=== PATIENT | female | born 1950 | race Caucasian/White ===

== ENCOUNTER 2019-10-02 15:45 | Emergency (ER) | payer MEDICARE, SELFPAY ==
--- NOTE | ~2019-10-02 | XR_ITS ---
EXAMINATION: XR humerus LT INDICATION: Left arm pain TECHNIQUE: Two views of the left humerus are obtained. COMPARISON: 05/17/2015 FINDINGS: There is no fracture, dislocation, or subluxation of the humerus. The glenohumeral joint ap pears unremarkable. There are 10 mm of widening of the acromioclavicular joint. The soft tissues are unremarkable. IMPRESSION: 1. No acute osseous abnormality. 2. Acromioclavicular joint separation. Reviewed, dictated and finalized at location A.
--- NOTE | ~2019-10-02 | XR_ITS ---
EXAMINATION: XR clavicle LT INDICATION: Left shoulder pain TECHNIQUE: Two views of the left clavicle are obtained. COMPARISON: 05/17/2015 FINDINGS: There are 2 mm of separation at the acromioclavicular joint. No fractures identified. Mild glenohumeral osteoarthritis is noted. IMPRESSION: 1. Acromioclavicular joint separation. Reviewed, dictated and finalized at location A.
[2019-10-02 15:48] VITALS: BP 147/81; PULSE 113; RESP 16; TEMP 37.6; O2SAT 95
--- NOTE | 2019-10-02 17:17 | ED.FALL ---
HPI - Fall General Chief Complaint: Fall Stated Complaint: left shoulder issue Time Seen by Provider: 10/02/19 17:02 Source: patient Mode of arrival: ambulatory Limitations: no limitations History of Present Illness HPI Narrative: 69-year-old female History of hypothyroid and hypertension Takes no blood thinners only a baby aspirin Stumbled today at her house and banged into a wall with her left upper arm and shoulder as she fell Did not hit her head did not lose consciousness complains of no headache and no neck pain She has a bruise on the upper part of her arm and some soreness in the front of her shoulder MD complaint: fall Onset (ago): hour(s) Fall from: standing Place fall occurred: home Loss of consciousness: none Symptoms prior to fall: none Context: tripped/slipped Location of injury - extremities: Left: shoulder Severity: moderate Related Data Home Medications Medication Instructions Recorded Confirmed fesoterodine [Toviaz] mg PO 10/02/19 [id number] INHALATION 10/02/19 [Trelegy Ellipta] hydrocodone-acetaminophen 10/02/19 levothyroxine 10/02/19 lisinopril 10/02/19 losartan 10/02/19 nifedipine PO 10/02/19 omeprazole 10/02/19 Allergies Allergy/AdvReac Type Severity Reaction Status Date / Time No Known Allergies Allergy Mild Verified 10/02/19 16:00 Review of Systems Review of Systems: All systems reviewed & are unremarkable except as noted in HPI and below Constitutional: Constitutional: Denies fatigue and Denies weakness Cardiovascular: Cardiovascular: Denies chest pain Musculoskeletal: Musculoskeletal: Reports no additional musculoskeletal complaints and Reports as per HPI Neurologic: Denies dizziness, Denies syncope and Denies weakness Hematologic/Lymphatic: Hematologic/Lymphatic: Denies easy bleeding and Denies easy bruising [facility] Social History Social History Gender identity (if verbalized by the patient): Female Exam Const: General: no acute distress and alert Orientation/consciousness: patient oriented x3 HENMT: Head: normal to inspection Other: NC/AT Eyes: Conjunctivae: conjunctivae normal EOM: EOMs intact bilaterally Neck: Other: Nontender, pain-free range of motion, clinically clear Chest: Chest palpation & inspection: normal inspection of the chest and no tenderness Resp: Effort & Inspection: normal respiratory effort Neuro: General: patient oriented x3 and moves all extremities Speech: normal speech Extrem: Other: She has a 5 cm bruise over the lateral part of her upper arm on the left side but very little tenderness in that area There is tenderness over the left AC joint Course Vital Signs Vital signs: Vital Signs Temperature 37.6 C H 10/02/19 15:48 Pulse Rate 113 H 10/02/19 15:48 Respiratory Rate 16 10/02/19 15:48 Blood Pressure 147/81 H 10/02/19 15:48 Pulse Oximetry 95 10/02/19 15:48 Temperature 37.6 C H 10/02/19 15:48 Pulse Rate 113 H 10/02/19 15:48 Respiratory Rate 16 10/02/19 15:48 Blood Pressure 147/81 H 10/02/19 15:48 Pulse Oximetry 95 10/02/19 15:48 MDM - Fall Imaging Data Radiologist's impression: AC separation No fracture Discharge Plan Discharge Clinical Impression: Separation of left acromioclavicular joint Patient Disposition: Home, Self-Care Condition: Stable Instructions: Antibiotic Form, How to Use a Sling (ED), Acromioclavicular Separation (ED) Prescriptions: No Action nifedipine 90 mg tablet extended release PO RF: 0 hydrocodone-acetaminophen 5-325 mg tablet RF: 0 lisinopril 20 mg tablet RF: 0 losartan 25 mg tablet RF: 0 omeprazole 20 mg capsule,delayed release(DR/EC) RF: 0 levothyroxine 112 mcg tablet RF: 0 Toviaz 8 mg tablet extended release 24 hr PO RF: 0 Trelegy Ellipta 100-62.5-25 mcg blister with device
--- NOTE | 2019-10-02 17:51 | PC.NURSE ---
Patient states my hand is going numb, can I talk to the doctor. Dr. Herrera notified.
== END 2019-10-02 18:03 | disposition home or self-care (01) ==
PROVIDERS: Emergency Provider Emergency Medicine; PCP Nurse Practitioner Family
DX: S43.102A Unspecified dislocation of left acromioclavicular joint, initial encounter (principal); E03.9 Hypothyroidism, unspecified; I10 Essential (primary) hypertension; W01.198A Fall on same level from slipping, tripping and stumbling with subsequent striking against other object, initial encounter
CPT/HCPCS: 73000; 73060; 99283; A4565

== ENCOUNTER 2023-06-16 11:24 | Outpatient (CLI) | payer MEDICARE, SELFPAY ==
--- NOTE | ~2023-06-16 | US_ITS ---
EXAMINATION: US venous doppler LE RT DATE: 06/16/2023 11:59 INDICATION: Right lower limb pain and swelling. Chronic venous embolism and thrombosis. TECHNIQUE: Grayscale ultrasound images without and with compression and Doppler ultrasound images of the right lower extremity veins were obtained. COMPARISON: None. FINDINGS: The visualized portions of right common femoral vein, profunda (deep) femoral vein, femoral vein, pop liteal vein, peroneal veins, posterior tibial veins, and greater saphenous vein outflow are patent. IMPRESSION: 1. No deep venous thrombosis. Reviewed, dictated and finalized at location A.
== END 2023-06-16 11:25 | disposition home or self-care (01) ==
PROVIDERS: PCP Nurse Practitioner Family; Visit Provider Internal Medicine Hematology & Oncology
DX: I82.5Z1 Chronic embolism and thrombosis of unspecified deep veins of right distal lower extremity (principal)
CPT/HCPCS: 93971

== ENCOUNTER 2023-07-07 13:53 | Outpatient (CLI) | payer MEDICARE, SELFPAY ==
[2023-07-08 11:33] LABS: Homocysteine 12.8 umol/L (<10.4)
[2023-07-09 19:29] LABS: Lupus dRVVT Screen 38 sec (< OR = 45); PTT-LA Screen 27 sec (< OR = 40)
[2023-07-11 06:18] LABS: Antithrombin III Activity 123 % normal (80-135)
[2023-07-14 14:09] LABS: Factor V (Leiden) Mutation NEGATIVE
== END 2023-07-07 13:54 | disposition home or self-care (01) ==
LOC: ANHLAB 13:54
PROVIDERS: PCP Nurse Practitioner Family; Visit Provider Internal Medicine Hematology & Oncology
DX: I82.5Z1 Chronic embolism and thrombosis of unspecified deep veins of right distal lower extremity (principal)
CPT/HCPCS: 36415; 81240; 81241; 83090; 85300; 85303; 85306; 85613; 85730; 86146

== ENCOUNTER 2023-11-19 11:18 | Outpatient (CLI) | payer MEDICARE, SELFPAY ==
[2023-11-19 11:31] LABS: Hemoglobin 14.1 g/dL (12.0-15.0); Mean Corpuscular HGB Conc 31.3 g/dl (32-36); Mean Corpuscular Hemoglobin 30.3 pg (26-34); Mean Corpuscular Volume 96.6 fl (80-100); Mean Platelet Volume 9.6 fl (7.4-10.4); Platelet Count Result 287 k/mm3 (150-375); Red Blood Count 4.66 M/mm3 (4.2-5.4); White Blood Count 9.7 K/mm3 (4.5-10.0)
[2023-11-19 13:51] LABS: Vitamin B12 > 1000.0 pg/mL (239-931)
[2023-11-19 14:21] LABS: Folic Acid > 20.0 ng/mL (2.76->20)
[2023-11-21 14:24] LABS: Homocysteine 7.8 umol/L (<10.4)
== END 2023-11-19 11:19 | disposition home or self-care (01) ==
LOC: ANHLAB 11:19
PROVIDERS: PCP Nurse Practitioner Family; Visit Provider Internal Medicine Hematology & Oncology
DX: I82.5Z1 Chronic embolism and thrombosis of unspecified deep veins of right distal lower extremity (principal)
CPT/HCPCS: 36415; 82607; 82746; 83090; 85027

== ENCOUNTER 2024-12-07 07:46 | Emergency (ER) | payer MEDICARE, SELFPAY ==
[2024-12-07] VITALS (7 sets, daily range): BP systolic 172–203; BP diastolic 99–109; PULSE 93–111; RESP 16–20; TEMP 36.2; O2SAT 95–98
--- OUTSIDE RECORDS SUMMARY | 2024-12-07 07:50 | XMS_ITS | Clinical Summary ---
Author Organization [facility] Carol Ramirez Address [address] [place] [address] Care Team Providers Care Bill Poster Installer Name Role Phone Unavailable Primary Care Provider Unavailabl e Allergies No known active allergies Medications albuterol sulfate HFA 90 mcg/actuation aerosol inhaler Take 2 Puffs by inhalation every 4 hours as needed. 4 Active apixaban (Eliquis) 5 mg tablet Take 5 mg by mouth 2 times daily. 4 Active cholecalciferol, Vitamin D3, 125 mcg (5,000 unit) Capsule Take 125 mcg by mouth daily. 4 Active dapagliflozin propanediol (Farxiga) 10 mg Tablet Take 10 mg by mouth daily. 4 Active fluticasone-umec lidinium-vilante rol (Trelegy Ellipta) 200-62.5-25 mcg Disk with Device Take 1 Puff by inhalation daily. 4 Active HYDROcodone-acet aminophen (NORCO) 5-325 mg tablet Take 1-2 Tablets by mouth every 6 hours as needed. 4 Active levothyroxine 112 mcg tablet Take 112 mcg by mouth. 4 Active lisinopriL (PRINIVIL) 20 mg tablet Take 20 mg by mouth daily. 3 Active NIFEdipine (ADALAT CC) 90 mg Extended Release tablet TAKE 1 TABLET(90 MG) BY MOUTH DAILY 4 Active omeprazole (PriLOSEC) 20 mg Capsule, Delayed Release(E.C.) Take 20 mg by mouth daily. 4 Active furosemide (LASIX) 20 mg tablet TAKE 1 TABLET(20 MG) BY MOUTH DAILY NEEDED FOR SWELLING 3 Active fesoterodine SR 24 hour (TOVIAZ) 8 mg tablet TAKE 1 TABLET(8 MG) BY MOUTH DAILY 3 Active Active Problems No known active problems Encounters Date Type Department Care Team Description 11/30/2024 External Device Data STL ABSTRACTION Provider, Abstract 11/23/2024 External Device Data STL ABSTRACTION Provider, Abstract 10/13/2024 2:15 PM CDT Office Visit [facility] H[facility]ology - [address] [place] [id number] Ashvin Weber MD Chronic venous embolism and thrombosis of deep vessels of distal end of right lower extremity (CMS/HCC) (Primary Dx) 09/22/2024 External Device Data STL ABSTRACTION Provider, Abstract 09/21/2024 External Device Data STL ABSTRACTION Provider, Abstract from Last 3 Months Family History Medical History Relation Name Comments Diabetes Mother Heart Disease Mother Lung Cancer Sister 3 Relation Name Status Comments Daughter Alive Father Mother Sister 1 Alive Sister 2 Alive Sister 3 Sister 4 Alive Son 1 Alive Son 2 Alive Social History Tobacco Use Types Packs/Day Years Used Date Smoking Tobacco: Former Cigarettes Q uit: 1965 Smokeless Tobacco: Never Tobacco Cessation:Counseling Given: Not Answered Alcohol Use Standard Drinks/Week Comments Yes 0 (1 standard drink = 0.6 oz pur e alcohol) rarely Comments Unknown Sex and Gender Information Value Date Recorded Sex Assigned at Not on file Legal Sex Female 2:13 PM CDT Gender Identity Not on file Sexual Orientation Not on file Last Filed Vital Signs Vital Sign Reading Time Taken Comments Blood Pressure 130/78 10/13/2024 2:21 PM CDT Pulse 91 10/13/2024 2:21 PM CDT Temperature 36.7 C (98 F) 10/13/2024 2:21 PM CDT Respiratory Rate 16 10/13/2024 2:21 PM CDT Oxygen Saturation 91% 10/13/2024 2:21 PM CDT Inhaled Oxygen Concentration - - Weight 84.2 kg (185 lb 9.6 oz) 10/13/2024 2:21 P M CDT Height 157.5 cm (5' 2) 06/16/2023 10:24 AM CDT Body Mass Index 33.95 06/16/2023 10:24 AM CDT Plan of Treatment Upcoming Encounters Date Type Department Care Team (Late st Contact Info) Description 07/13/2025 1:00 PM CDT Office Visit [facility] H[facility]ology - [place] [address] [place] [address] Ashvin Weber MD [address] [place] [address] Health Maintenance Due Date Last Done Comments ZOSTER VACCINE (1 of 2) 1998 OSTEOPOROSIS SCREENING 2013 RSV VACCINE (60+ or ) (1 - 1-dose 75+ series) 2023 INFLUENZA VACCINE (#1) 2024 , 12/30/2022, 01/27/2018, Additional history exists COVID-19 Vaccine (2 - 2023-2 5 season) 2024 01/22/2024 DTAP/TDAP/TD VACCINES (2 - T d or Tdap) 01/28/2028 01/27/2018 COLORECTAL SCREENING Discontinued 02/15/2019 Colorectal Cancer Screening Discontinued PNEUMOCOCCAL VACCINE 50+ YEARS Completed 11/29/2021 , 10/14/2017 FIT-DNA Q 3 years Discontinued FIT/FOBT Q 1 year Discontinued Flex Sig/CT Colonography Q 5 years Discontinued Procedures Procedure Name Priority Date/Time Associated Diagnosis Comments CBC WITH DIFFERENTIAL Routine 09/27/2024 2:29 PM CDT VITAMIN B12 AND FOLATE Routine 09/27/2024 2:29 PM CDT Chronic venous embolism and thrombosis of deep vessels of distal end of right lower extremity (CMS/HCC) HOMOCYSTEINE Routine 09/27/2024 2:29 PM CDT Chronic venous embolism and thrombosis of deep vessels of distal end of right lower extremity (CMS/HCC) from Last 3 Months Results * VITAMIN B12 AND FOLATE (09/27/2024 2:29 PM CDT) VITAMIN B12 774 200 - 1100 pg/mL [facility] FOLATE, SERUM 23.3 ng/mL [facility] Comment: Reference Range Low: <3.4 Borderline: 3.4-5.4 Normal: >5.4 Test Performed at: [facility] [address] [place] [address] Dank Reed MD Blood 09/27/2024 2:29 PM CDT 09/27/2024 2:31 PM CDT us Ashvin Weber MD CHEMISTRY ORDERABLES Final Resu lt [facility] [phone] [facility] [address] [place] [address] * (ABNORMAL) CBC WITH DIFFERENTIAL (09/27/2024 2:29 PM CDT) WBC 7.6 3.8 - 10.8 Thousand/u L [facility] RBC 4.72 3.80 - 5.10 Million/uL [facility] HEMOGLOBIN 14.5 11.7 - 15.5 g/dL [facility] HEMATOCRIT 46.3(H) 35.0 - 45.0 % [facility] MCV 98.1 80.0 - 100.0 fL [facility] MCH 30.7 27.0 - 33.0 pg [facility] MCHC 31.3(L) 32.0 - 36.0 g/dL [facility] Comment: For adults, a slight decrease in the calculated MCHC value (in the range of 30 to 32 g/dL) is most likely not clinically significant; however, it should be interpreted with caution in correlation with other red cell parameters and the patient's clinical condition. RDW 13.1 11.0 - 15.0 % [facility] PLATELETS 282 140 - 400 Thousand/u L [facility] MPV 10.9 7.5 - 12.5 fL [facility] NEUTROPHIL ABSOLUTE 3,952 1,500 - 7,800 cells/uL [facility] LYMPHOCYTE ABSOLUTE 2,827 850 - 3,900 cells/uL [facility] MONOCYTE ABSOLUTE 547 200 - 950 cells/uL [facility] EOSINOPHIL ABSOLUTE 213 15 - 500 cells/uL [facility] BASOPHILS ABSOLUTE 61 0 - 200 cells/uL [facility] NEUTROPHIL 52 % [facility] LYMPHOCYTES 37.2 % [facility] MONOCYTE 7.2 % [facility] EOSINOPHILS 2.8 % [facility] BASOPHILS 0.8 % [facility] Comment: Test Performed at: [facility] [address] [place] [address] Dank Reed MD 09/27/2024 2:29 PM CDT 09/27/2024 2:31 PM CDT Ashvin Weber MD HEMATOLOGY ORDERABLES Final Res ult [facility] [phone] [facility] [address] * HOMOCYSTEINE (09/27/2024 2:29 PM CDT) HOMOCYSTEINE CARDIOVASCULAR 11.3 < or = 13.4 umol/L [facility] Comment: Homocysteine is increased by functional deficiency of folate or vitamin B12. Testing for methylmalonic acid differentiates between these deficiencies. Other causes of increased homocysteine include renal failure, folate antagonists such as methotrexate and phenytoin, and exposure to nitrous oxide. Evert Brown et al., Shelia Picture [employer] Med. 1999;131(5):331-9. Test Performed at: [facility] [address] [facility] [address] Dank Reed MD Blood 09/27/2024 2:29 PM CDT 09/27/2024 2:31 PM CDT Ashvin Weber MD CHEMISTRY ORDERABLES Final Resu lt [facility] [phone] [facility] [address] [place] [id number] from Last 3 Months Insurance [facility] Address: [address] [address]
--- NOTE | 2024-12-07 07:53 | ED.GENADULT ---
HPI - General Adult General Chief complaint: Unspecified Stated complaint: locked jaw Time Seen by Provider: 12/07/24 07:48 History of Present Illness HPI narrative: 74-year-old female presents to the emergency department for evaluation for suspected jaw dislocation. Patient reports she yawned this morning and her jaw has been able to close since then. Patient denies any difficulty breathing or swallowing. Patient denies any swelling of her tongue. Related Data Home Medications ?Medication ?Instructions ?Recorded ?Confirmed ?Last Taken ?Type fesoterodine 8 mg tablet,extended 8 mg PO DAILY 10/02/19 12/07/24 12/06/24 History release 24 hr (Toviaz) fluticasone fur. 100 mcg-umeclid 1 inh inhalation Q24H 10/02/19 12/07/24 12/06/24 History 62.5 mcg-vilant 25 mcg inhalat.powder (Trelegy Ellipta) hydrocodone 5 mg-acetaminophen 325 1 tablet PO 10/02/19 Unknown History mg tablet levothyroxine 112 mcg tablet 112 mcg PO DAILY 10/02/19 12/07/24 12/06/24 History lisinopril 20 mg tablet 20 mg PO DAILY 10/02/19 12/07/24 12/06/24 History losartan 25 mg tablet 25 mg PO DAILY 10/02/19 12/07/24 12/06/24 History nifedipine 90 mg tablet,extended 90 mg PO DAILY 10/02/19 12/07/24 12/06/24 History release omeprazole 20 mg capsule,delayed 20 mg PO DAILY 10/02/19 12/07/24 12/06/24 History release Allergies Allergy/AdvReac Type Severity Reaction Status Date / Time No Known Allergies Allergy Mild Verified 12/07/24 08:00 Review of Systems Review of Systems: All systems reviewed & are unremarkable except as noted in HPI and below PMFSH Social History Social History Gender identity (if verbalized by the patient): Female Exam Narrative: APPEARANCE: Well appearing, no pain, no distress, well-nourished. HEAD: normocephalic, atraumatic. EYES: PERRLA/EOMI, conjunctivae clear. NOSE: Normal no drainage EARS:TMS clear with good light reflex. THROAT: Pharynx clear, no exudate. NECK: Supple. No adenopathy, no masses. Jaw: Bilateral mandible dislocation RESPIRATORY: Airway patent, respirations nonlabored. Clear to auscultation bilaterally, no rales, rhonchi, wheezing. CARDIOVASCULAR: Regular rate and rhythm without murmurs rubs or gallops. ABDOMINAL: Soft, nontender, nondistended, normal bowel sounds MUSCULOSKELETAL: Moves all extremities. Strength/ROM intact, No edema, No calf tenderness. NEURO: Alert. Cranial nerves II through XII intact. Good gait. Good coordination SKIN: Warm, dry. Normal Color Course Vital Signs Vital signs: Vital Signs Temperature 97.1 F L 12/07/24 07:57 Pulse Rate 106 H 12/07/24 07:57 Respiratory Rate 20 12/07/24 07:57 Blood Pressure 203/104 H 12/07/24 07:57 Pulse Oximetry 97 12/07/24 07:57 Oxygen Delivery Room Air 12/07/24 07:57 Temperature 97.1 F L 12/07/24 07:57 Pulse Rate 111 H 12/07/24 09:19 Respiratory Rate 18 12/07/24 09:19 Blood Pressure 173/109 H 12/07/24 09:19 Pulse Oximetry 95 12/07/24 09:19 Oxygen Delivery Room Air 12/07/24 08:59 Oxygen Flow Rate 2 12/07/24 08:32 Procedures Orthopedic Joint Reduction Joint #1: Orthopedic Joint Reduction Time: 08:08 Time Out Performed: Yes Joint Reduction Location: other (jaw) Pre-Procedure Neuro Vascular Exam: normal Technique used: direct manipulation Post-reduction neuro exam: intact Post-reduction vascular: intact Post Reduction X-Ray Obtained: No Post Reduction X-Ray Results: reduced Splint Applied: No (Wrap under the drop was applied to help remind the patient to stop from phuong) Patient Tolerated Procedure: well and no complications Additional Comments: Patient had bilateral jaw dislocation, treated with 2 mg of IV Versed prior to reduction. Medical Decision Making MDM Narrative Medical decision making narrative: 74-year-old female presents emergency department for evaluation for jaw dislocation. Patient states she on this morning and dislocated her jaw, patient felt that it was both sides. Patient was treated with 2 mg of IV Versed and draw was able to be manipulated back into position. Patient is able to close her mouth and states he does feel significantly improved. Normal anatomic appearance. Prior to being discharged patient did dislocate her mandible bilaterally a 2nd time and this was once again reduced. Patient was well-appearing at time of discharge. Differential Diagnosis Differential Diagnosis: Tongue swelling, allergic reaction, mandible dislocation, jaw fracture Vital Signs Vital Signs: Vital Signs Temperature 97.1 F L 12/07/24 07:57 Pulse Rate 106 H 12/07/24 07:57 Respiratory Rate 20 12/07/24 07:57 Blood Pressure 203/104 H 12/07/24 07:57 Pulse Oximetry 97 12/07/24 07:57 Oxygen Delivery Room Air 12/07/24 07:57 Temperature 97.1 F L 12/07/24 07:57 Pulse Rate 111 H 12/07/24 09:19 Respiratory Rate 18 12/07/24 09:19 Blood Pressure 173/109 H 12/07/24 09:19 Pulse Oximetry 95 12/07/24 09:19 Oxygen Delivery Room Air 12/07/24 08:59 Oxygen Flow Rate 2 12/07/24 08:32 Lab Data Lab results reviewed: Yes I reviewed the patient's lab results. Discharge Plan Discharge Clinical Impression: Dislocated jaw Patient Disposition: Home Condition: Stable Instructions: Antibiotic Form, Jaw Dislocation (ED), Procedural Sedation (ED) Additional Instructions: Follow discharge instructions. Follow a soft or clear liquid diet for the next day. Do not yawn. Have close follow-up with your primary care physician. If you have any worsening symptoms please call or return to the emergency department. Patient Language: Turkish Prescriptions: No Action nifedipine 90 mg tablet extended release 90 mg PO DAILY hydrocodone-acetaminophen 5-325 mg tablet 1 tablet PO lisinopril 20 mg tablet 20 mg PO DAILY losartan 25 mg tablet 25 mg PO DAILY omeprazole 20 mg capsule,delayed release(DR/EC) 20 mg PO DAILY levothyroxine 112 mcg tablet 112 mcg PO DAILY fesoterodine [Toviaz] 8 mg tablet extended release 24 hr 8 mg PO DAILY Trelegy Ellipta 100-62.5-25 mcg blister with device 1 inh INHALATION Q24H Follow-up/Referrals: JOSEPH,CLIFF SWAIN [Primary Care Provider]
[2024-12-07] MEDS: MIDAZOLAM HCL (*CRX) 2 MG/2 ML VIAL IV PUSH (08:00)
--- NOTE | 2024-12-07 08:29 | PC.NURSE ---
Pt placed on 2L O2 d/t O2 saturation being 88%. Pt has PMH COPD and wears O2 at home.
[2024-12-07] MEDS: ALBUTEROL SULFATE NEB 2.5 MG/3 ML INH 5 MG INHALATION (08:41)
== END 2024-12-07 09:27 | disposition home or self-care (01) ==
PROVIDERS: Emergency Provider Emergency Medicine; PCP Nurse Practitioner Family
DX: S03.00XA Dislocation of jaw, unspecified side, initial encounter (principal); Z79.899 Other long term (current) drug therapy; X58.XXXA Exposure to other specified factors, initial encounter
CPT/HCPCS: 21480; 94640; 96374; 99285; J2250